=== PATIENT | male | born 1960 | race Caucasian/White ===

== ENCOUNTER → 2016-10-25 | Outpatient (CLI) | payer MEDICARE ==
[~2016-10-25] MED LIST: ATEN1TAB74 PO; CABE0.5T PO; GLUCTAB PO; LORA-392 PO; OXYC20TA26 PO; XANA1TAB6 PO
[2016-10-25 08:22] LABS: AUTOMATED NEUTROPHIL # 1.5 TH/MM3 (1.8-7.7); BASOPHIL % 0.8 % (0.0-2.0); EOSINOPHIL % 1.1 % (0.0-4.0); HEMATOCRIT 41.3 % (39.0-51.0); HEMO FLAGS DIFF FINAL; LYMPH % 45.2 % (9.0-44.0); LYMPHOCYTE # 1.6 TH/MM3 (1.0-4.8); MEAN CELL VOLUME 93.6 FL (80.0-100.0); MEAN CORPUSCULAR HEMOGLOBIN 31.9 PG (27.0-34.0); MEAN CORPUSCULAR HGB CONC 34.1 % (32.0-36.0); MONO % 9.4 % (0.0-8.0); NEUT % 43.5 % (16.0-70.0); PLATELET COUNT 150 TH/MM3 (150-450); RED BLOOD COUNT 4.41 MIL/MM3 (4.50-5.90); RED CELL DISTRIBUTION WIDTH 12.4 % (11.6-17.2); WHITE BLOOD COUNT 3.5 TH/MM3 (4.0-11.0)
[2016-10-25 08:56] LABS: ALKALINE PHOSPHATASE 70 U/L (45-117); ALT (GPT) 43 U/L (12-78); ANION GAP 7 MEQ/L (5-15); AST (GOT) 22 U/L (15-37); BICARBONATE 34.2 MEQ/L (21.0-32.0); BLOOD UREA NITROGEN 14 MG/DL (7-18); CHLORIDE 99 MEQ/L (98-107); GLOMERULAR FILTRATION RATE 93 ML/MIN (>89); GLUCOSE,FASTING 100 MG/DL (74-99); POTASSIUM 3.5 MEQ/L (3.5-5.1); SODIUM (NA) 140 MEQ/L (136-145); TOTAL BILIRUBIN ADULT 0.6 MG/DL (0.2-1.0)
[2016-10-25 08:57] LABS: HDL CHOLESTEROL 107.7 MG/DL (40.0-60.0)
[2016-10-25 09:02] LABS: FREE T4 1.38 NG/DL (0.76-1.46)
[2016-10-25 14:53] LABS: HEMOGLOBIN A1a 1.2 %; HEMOGLOBIN A1b 1.5 %; HEMOGLOBIN Ao 85.5 %; HEMOGLOBIN P3 3.4 %
== END ==
LOC: CLAB 07:43
DX: E22.9 Hyperfunction of pituitary gland, unspecified (principal); E29.1 Testicular hypofunction; E03.8 Other specified hypothyroidism; E11.8 Type 2 diabetes mellitus with unspecified complications; D35.2 Benign neoplasm of pituitary gland; E89.89 Other postprocedural endocrine and metabolic complications and disorders; M31.6 Other giant cell arteritis; R53.83 Other fatigue; G93.3 Postviral and related fatigue syndromes; R53.1 Weakness; R53.81 Other malaise; G25.0 Essential tremor
CPT/HCPCS: 36415; 80053; 80061; 83036; 84270; 84402; 84403; 84439; 84443; 85025

== ENCOUNTER → 2017-05-26 | Outpatient (CLI) | payer MEDICARE ==
[2017-05-26 09:17] LABS: ANION GAP 9 MEQ/L (5-15); BICARBONATE 31.5 MEQ/L (21.0-32.0); BLOOD UREA NITROGEN 12 MG/DL (7-18); CHLORIDE 97 MEQ/L (98-107); GLOMERULAR FILTRATION RATE 103 ML/MIN (>89); GLUCOSE,FASTING 102 MG/DL (74-99); POTASSIUM 3.7 MEQ/L (3.5-5.1); SODIUM (NA) 137 MEQ/L (136-145)
[2017-05-26 09:28] LABS: FREE T4 1.47 NG/DL (0.76-1.46)
[2017-05-26 16:39] LABS: HEMOGLOBIN A1a 1.2 %; HEMOGLOBIN A1b 1.4 %; HEMOGLOBIN Ao 85.3 %; HEMOGLOBIN LA1C 2.1 %; HEMOGLOBIN P3 3.6 %
== END ==
LOC: CLAB 08:18
DX: E03.8 Other specified hypothyroidism (principal); D35.2 Benign neoplasm of pituitary gland; R73.01 Impaired fasting glucose; E29.1 Testicular hypofunction
CPT/HCPCS: 36415; 80048; 83036; 84146; 84403; 84410; 84439; 84443

== ENCOUNTER → 2017-09-23 | Outpatient (CLI) | payer MEDICARE ==
[2017-09-23 08:29] LABS: AUTOMATED NEUTROPHIL # 2.5 TH/MM3 (1.8-7.7); BASOPHIL % 0.6 % (0.0-2.0); EOSINOPHIL % 0.9 % (0.0-4.0); HEMATOCRIT 43.7 % (39.0-51.0); HEMOGLOBIN 15.1 GM/DL (13.0-17.0); LYMPH % 29.2 % (9.0-44.0); LYMPHOCYTE # 1.2 TH/MM3 (1.0-4.8); MEAN CELL VOLUME 99.1 FL (80.0-100.0); MEAN CORPUSCULAR HEMOGLOBIN 34.2 PG (27.0-34.0); MEAN CORPUSCULAR HGB CONC 34.5 % (32.0-36.0); MEAN PLATELET VOLUME 7.5 FL (7.0-11.0); MONO % 8.7 % (0.0-8.0); MONOCYTE # 0.4 TH/MM3 (0-0.9); NEUT % 60.6 % (16.0-70.0); PLATELET COUNT 163 TH/MM3 (150-450); RED BLOOD COUNT 4.41 MIL/MM3 (4.50-5.90); RED CELL DISTRIBUTION WIDTH 13.7 % (11.6-17.2); WHITE BLOOD COUNT 4.1 TH/MM3 (4.0-11.0)
[2017-09-23 08:56] LABS: ALKALINE PHOSPHATASE 67 U/L (45-117); ALT (GPT) 57 U/L (12-78); TOTAL BILIRUBIN ADULT 0.7 MG/DL (0.2-1.0); TOTAL PROTEIN 7.9 GM/DL (6.4-8.2)
[2017-09-23 08:59] LABS: ALBUMIN 4.2 GM/DL (3.4-5.0); AST (GOT) 67 U/L (15-37); BICARBONATE 32.1 MEQ/L (21.0-32.0); BLOOD UREA NITROGEN 7 MG/DL (7-18); CALCIUM 9.2 MG/DL (8.5-10.1); CHLORIDE 101 MEQ/L (98-107); GLOMERULAR FILTRATION RATE 116 ML/MIN (>89); GLUCOSE,FASTING 105 MG/DL (74-99); SODIUM (NA) 142 MEQ/L (136-145)
[2017-09-25 07:02] LABS: GABAPENTIN (NEURONTIN) 1.2 mcg/mL (2.0-20.0); PHENOBARBITAL <2.4 mcg/mL (10.0 - 40.0); PRIMDONE 4.1 mcg/mL (5.0 - 12.0)
== END ==
LOC: CLAB 07:56
PROVIDERS: ATTEND Psychiatry & Neurology Neurology
DX: G25.0 Essential tremor (principal); Z51.81 Encounter for therapeutic drug level monitoring; G93.3 Postviral and related fatigue syndromes; R53.1 Weakness; R53.81 Other malaise; R53.83 Other fatigue
CPT/HCPCS: 36415; 80053; 80171; 80184; 80188; 85025

== ENCOUNTER 2018-06-01 07:30 | Inpatient (IN) ==
[2018-06-01] MEDS ORDERED: Chlorhexidine Gluconate 2% 1 Pack (2 Cloths) TOPICAL ONE (12:48)
[2018-06-01] MEDS ORDERED: Metoprolol Tartrate 25 MG Tablet PO ONE (12:48)
[2018-06-01] MEDS ORDERED: Sodium Chlor 0.9% Inj 500 ML IV.SIG SCH (13:00)
[2018-06-01] MEDS ORDERED: ceFAZolin 2 GM Premix Inj 2 GM/50 ML PIGGYBACK IV.SIG SCH (13:00)
[2018-06-01 13:10] LABS: Prothrombin Time 10.6 sec (9.8-11.6)
[2018-06-01] MEDS ORDERED: HYDROmorphone PF Inj 2 MG/ML Vial ONE (15:29)
[2018-06-01] MEDS ORDERED: Ketamine Inj 50 MG/5 ML Syringe IV.PUSH ONE (15:29)
[2018-06-01] MEDS ORDERED: fentaNYL Citrate Inj 100 MCG/2 ML Ampul ONE ×3 (15:36→18:01)
[2018-06-01] MEDS ORDERED: *morphine SULFATE 4 MG/ML PERIprocedure ONLY ONE ×2 (17:51→18:57)
[2018-06-01] MEDS ORDERED: Sodium Chlor 0.9% Inj 1,000 ML IV.SIG SCH (18:00)
[2018-06-01 18:07] LABS: Baso % (Auto) 0.3 % (0.0-2.0); Hematocrit 39.9 % (39.0-51.0); Hemoglobin 13.7 gm/dL (13.0-17.0); Lymph # (Auto) 0.6 th/mm3 (1.0-4.8); Lymph % (Auto) 6.3 % (9.0-44.0); Mean Corpuscular HGB Conc 34.3 % (32.0-36.0); Mean Corpuscular Hemoglobin 36.3 pg (27.0-34.0); Mean Corpuscular Volume 105.8 fL (80.0-100.0); Mean Platelet Volume 8.3 fL (7.0-11.0); Mono # (Auto) 0.1 th/mm3 (0.0-0.9); Mono % (Auto) 1.1 % (0.0-8.0); Neut # (Auto) 8.2 th/mm3 (1.8-7.7); Neut % (Auto) 92.3 % (16.0-70.0); Platelet Count 151 th/mm3 (150-450); Red Blood Count 3.77 mil/mm3 (4.50-5.90); Red Cell Distribution Width 13.9 % (11.6-17.2); White Blood Count 8.9 th/mm3 (4.0-11.0)
[2018-06-01] MEDS ORDERED: *Meperidine Inj 25 MG/ML Vial PERIprocedural Use ONLY ONE (18:09)
[2018-06-01 18:29] LABS: Calcium 7.7 mg/dL (8.5-10.1); Potassium 3.6 meq/L (3.5-5.1)
[2018-06-01] MEDS ORDERED: Gabapentin 400 MG Capsule PO ONE (18:45)
[2018-06-01] MEDS ORDERED: Dextrose 50% in Water 50 ML Vial IV.PUSH PRN (18:46)
[2018-06-01] MEDS: Pantoprazole Inj 40 MG Vial IV.PUSH SCH (18:52)
--- NOTE | 2018-06-01 20:14 | MP ---
cc: Felix Durand MD , DATE OF OPERATION: 06/01/2018 PREOPERATIVE DIAGNOSIS: Left solid renal mass, approximately 7 cm in size. POSTOPERATIVE DIAGNOSIS: Left solid renal mass, approximately 7 cm in size. PROCEDURE PERFORMED: Robotic-assisted laparoscopic left radical nephrectomy. SURGEON: Felix Durand MD ANESTHESIA: General. COMPLICATIONS: None. PREOPERATIVE ANTIBIOTICS: Ancef 2 grams IV. DRAINS: Newberry catheter. SPECIMENS: Left kidney for permanent. ESTIMATED BLOOD LOSS: 400 mL. FLUIDS: 2600 mL of crystalloid. DISPOSITION: Stable to recovery. INDICATIONS: The patient is a 57-year-old man who was found to have a large solid left renal mass incidentally on CT scan. Metastatic workup was negative. Treatment options were discussed with the patient. The patient elected to proceed with removal of his left kidney laparoscopically. After the risks, benefits and alternatives were explained to the patient, including the risks of renal failure, dialysis, chance of spread and recurrence, he elected to proceed. Informed consent was obtained. DETAILS OF PROCEDURE: The patient was properly identified, brought back to the operating room and laid supine on the operating table. Appropriate timeout was performed. Under the direction of anesthesiology, the patient was intubated and induced under general anesthetic. Preoperative antibiotics in the form of Ancef 2 grams IV were given within 1 hour of the start of the procedure. The patient was then placed in the right lateral decubitus position with the left side up and all pressure points were padded after a Newberry catheter was placed. The patient was then prepped and draped in normal sterile surgical fashion. A stab incision was made just lateral and superior to the umbilicus. A Veress needle was then used to gain access to abdominal cavity and achieve pneumoperitoneum. The incision was extended approximately 2 cm under direct visualization. I then passed a 12 mm camera port into the abdominal cavity. There was some anterior abdominal adhesions along the midline and towards the spleen. At this point, I put a 12 mm assistant project manager port in the midline inferior to the umbilicus. An 8 mm robotic assistant project manager port was then placed in the left lower quadrant, triangulated off of the camera port. Using laparoscopic scissors, I then took the adhesions down without difficulty. This opened up a window to place my left upper quadrant 8 mm robotic port, which was placed under direct visualization. At this point, the robot was then brought into position. The remaining anterior abdominal adhesions were then taken down with blunt dissection and electrocautery. At this point, I then took down the white line of Toldt and reflected the colon medially to expose the retroperitoneum. Through careful dissection, I was able to find the gonadal vein and ureter. I then retracted the vein and ureter anteriorly towards the abdominal wall and followed the psoas muscle and the gonadal vein up to the attachment of the renal vein. The gonadal vein was then ligated with the right vessel sealer. At this point, a single artery and vein were carefully identified. Each were taken separately beginning with the artery with the endovascular TERRI stapler. Once the renal hilum was taken, the rest of the kidney was carefully dissected and freed with a combination of electrocautery and blunt dissection. The superior and lateral attachments were then completely dissected free from the kidney and the kidney was completely mobilized. The remaining portion of the ureter which was still attached inferiorly was then divided with a the endovascular TERRI stapler. The kidney was then placed in an EndoCatch bag for later removal. The renal fossa and hilum were carefully inspected and there was some mild oozing going on around this area, which was then controlled with electrocautery. Then, 5 mL of Evicel was placed in this area for hemostatic purposes. The kidney was then extracted through the left lower quadrant incision. During extraction, the epigastrics were divided and these were controlled and Hem-o-loks. The incision was then closed with 2 layers with a running 3-0 Vicryl for the peritoneum and a 1 PDS for the fascial incisions. A second look was then taken once the fascial incision was closed. The under portion of the incision was free of bowel. There was no evidence of any pooling of blood in the renal fossa. The remaining structures remained intact and the ports were removed under direct visualization. The incisions were closed with 4-0 Monocryl. This concluded the procedure. The patient was extubated and sent to recovery in stable condition. He will be transferred to the floor for routine postoperative care. Sponge, instrument and needle counts were correct at the end of the case. Felix Durand MD EMKen/pancho , 05:33 PM , 05:45 PM
[2018-06-01] MEDS: Docusate Sodium 100 MG Capsule PO SCH (21:42)
[2018-06-01] MEDS: ceFAZolin 1 GM Premix Inj 1 GM/50 ML FROZ.PIGGY IV.SIG SCH (21:44)
[2018-06-01] MEDS: Insulin NovoLOG Aspart Correctional Sugar Inj SQ SCH (22:22)
[2018-06-01] MEDS: Primidone 50 MG Tablet PO SCH (23:56)
[2018-06-01] MEDS: Morphine Inj 4 MG/ML Vial IV.PUSH PRN (23:58)
[2018-06-02] MEDS: ceFAZolin 1 GM Premix Inj 1 GM/50 ML FROZ.PIGGY IV.SIG SCH ×2 (05:37→13:02)
[2018-06-02] MEDS: Morphine Inj 4 MG/ML Vial IV.PUSH PRN ×5 (05:37→22:18)
[2018-06-02] MEDS: Levothyroxine 75 MCG Tablet PO SCH (05:37)
[2018-06-02 07:15] LABS: Hematocrit 36.7 % (39.0-51.0); Hemoglobin 12.7 gm/dL (13.0-17.0); Mean Corpuscular HGB Conc 34.8 % (32.0-36.0); Mean Corpuscular Hemoglobin 37.1 pg (27.0-34.0); Mean Corpuscular Volume 106.8 fL (80.0-100.0); Mean Platelet Volume 8.5 fL (7.0-11.0); Platelet Count 122 th/mm3 (150-450); Red Blood Count 3.43 mil/mm3 (4.50-5.90); Red Cell Distribution Width 13.7 % (11.6-17.2); White Blood Count 6.9 th/mm3 (4.0-11.0)
[2018-06-02 07:41] LABS: Carbon Dioxide 27.1 meq/L (21.0-32.0); Potassium 4.8 meq/L (3.5-5.1)
[2018-06-02] MEDS: Primidone 50 MG Tablet PO SCH ×2 (09:00→21:02)
[2018-06-02] MEDS: Docusate Sodium 100 MG Capsule PO SCH ×2 (09:00→21:01)
[2018-06-02] MEDS: Insulin NovoLOG Aspart Correctional Sugar Inj SQ SCH ×3 (09:00→22:18)
[2018-06-02] MEDS: amLODIPine 5 MG Tablet PO SCH (09:00)
[2018-06-02] MEDS: Gabapentin 400 MG Capsule PO SCH (09:00)
[2018-06-02] MEDS: Duloxetine 60 MG DR Capsule PO SCH (09:00)
[2018-06-02] MEDS: traZODone 100 MG Tablet PO SCH (09:00)
--- NOTE | 2018-06-02 14:50 | P.PNURO ---
Subjective Patient symptoms today: Pt was seen at the bedside. He is s/p Robotic-assisted laparoscopic left radical nephrectomy yesterday. Has mild to mod post op pain, managed well. No f/c/n/v. Labs are stable. Tolerates clear diet well. Newberry removed he voided ok but states its a slow stream. No BM but had + flatus Objective Vital Signs: Vital Signs 06/01/18 19:02 06/01/18 21:39 06/02/18 00:00 Temperature 98.1 F 98.4 F Pulse Rate 76 80 Respiratory Rate 12 18 Blood Pressure 118/68 135/84 Pulse Oximetry 92 L 95 06/02/18 04:00 06/02/18 08:00 06/02/18 09:00 Temperature 98.5 F 98.6 F Pulse Rate 75 67 Respiratory Rate 18 16 5 L Blood Pressure 126/70 145/93 H Pulse Oximetry 95 98 06/02/18 12:00 Temperature 98.6 F Pulse Rate 64 Respiratory Rate 18 Blood Pressure 131/83 Pulse Oximetry 94 L Intake & Output 06/01/18 06/02/18 06/02/18 18:59 06:59 18:59 Intake Total 2600 / 2600 1100 / 1100 Output Total 650 / 650 350 / 350 150 / 150 Balance 1950 / 1950 750 / 750 -150 / -150 Weight 85 kg Intake: IV 1100 / 1100 NS Inj 1,000 ML @ 125 mls/hr IV 1000 / 1000 .SIG .Q10H ASHLEY Rx#:[id number] Ancef 1 GM Premix Inj 1 gm In 100 / 100 50 ml @ 100 mls/hr IV.SIG Q8H ASHLEY Rx#:[id number] Anesthesia Amount 2600 / 2600 Output: Urine 350 / 350 150 / 150 Estimated Blood Loss 350 / 350 Urine Amount (Catheter) 300 / 300 Indwelling Urethral Catheter 300 / 300 Other: # Voids 1 Weight On Admission 85 kg Result Diagrams: 06/02/18 06:13 06/02/18 06:13 Other Results: NAD RRR\Clear lungs Abd semisoft, slightly tender and distended as expected post/op Incisions c/d/i Medications and IVs: Active Medications Generic Name Dose Route Start Last Admin Trade Name Freq PRN Reason Stop Dose Admin Amlodipine Besylate 5 mg 06/02/18 09:00 06/02/18 09:00 Norvasc PO 5 mg DAILY ASHLEY Administration Buspirone HCl 10 mg 06/01/18 19:30 06/02/18 13:04 Buspar PO 10 mg TID ASHLEY Administration Clonidine HCl 0.1 mg 06/01/18 21:00 06/02/18 09:00 Catapres PO 0.1 mg BID ASHLEY Administration Dextrose 50 ml 06/01/18 18:46 D50w Vial IV.PUSH UNSCH PRN PER HYPOGLYCEMIA PROTOCOL Docusate Sodium 100 mg 06/01/18 21:00 06/02/18 09:00 Colace PO 100 mg BID ASHLEY Administration Duloxetine HCl 60 mg 06/02/18 09:00 06/02/18 09:00 Cymbalta PO 60 mg DAILY [facility] Administration Gabapentin 400 mg 06/02/18 09:00 06/02/18 09:00 Neurontin PO 400 mg DAILY ASHLEY Administration Glucagon 1 mg 06/01/18 18:46 Glucagon Inj OTHER PRN PRN for Hypoglycemia Protocol Sodium Chloride 1,000 mls @ 125 mls/hr 06/01/18 18:00 06/02/18 03:42 Ns Inj IV.SIG Infused .Q10H ASHLEY Infusion Insulin Aspart 0 unit 06/01/18 21:00 06/02/18 13:21 Novolog Insulin Correctional Sugar Inj SQ Not Given ACHS [facility] Protocol Levothyroxine Sodium 75 mcg 06/02/18 06:00 06/02/18 05:37 Synthroid PO 75 mcg DAILY@0600 ASHLEY Administration Metformin HCl 500 mg 06/01/18 21:00 06/01/18 21:42 Glucophage PO 500 mg HS ASHLEY Administration Miscellaneous Information 1 each 06/01/18 18:40 Misc Nursing Information OTHER 06/02/18 18:40 UNSCH PRN SEE LABEL COMMENTS Morphine Sulfate 4 mg 06/01/18 17:23 06/02/18 13:04 Morphine Inj IV.PUSH 4 mg Q4H PRN Administration BREAKTHROUGH PAIN Ondansetron HCl 4 mg 06/01/18 17:23 Zofran Inj IV.PUSH Q6H PRN NAUSEA OR VOMITING Oxycodone/Acetaminophen 2 tab 06/01/18 17:22 06/02/18 12:06 Percocet 5/325 Mg PO 2 tab Q4H PRN Administration PAIN SCALE 6 TO 10 Oxycodone/Acetaminophen 1 tab 06/01/18 17:25 Percocet 5/325 Mg PO Q4H PRN PAIN SCALE 3 TO 5 Pantoprazole Sodium 40 mg 06/01/18 18:00 06/01/18 18:52 Protonix Inj IV.PUSH 40 mg Q24H ASHLEY Administration Potassium Chloride 10 meq 06/01/18 21:00 06/02/18 09:00 Klor-Con 10 PO 10 meq BID ASHLEY Administration Pravastatin Sodium 20 mg 06/02/18 09:00 06/02/18 09:00 Pravachol PO 20 mg DAILY [facility] Administration Primidone 50 mg 06/01/18 21:00 06/02/18 09:00 Mysoline PO 50 mg Q12H ASHLEY Administration Sodium Chloride 2 ml 06/01/18 12:48 Ns Flush IV.FLUSH PRN PRN FLUSH AFTER USING IV ACCESS Sodium Chloride 2 ml 06/01/18 21:00 06/02/18 09:00 Ns Flush IV.FLUSH 2 ml BID ASHLEY Administration Trazodone HCl 100 mg 06/02/18 09:00 06/02/18 09:00 Desyrel PO 100 mg DAILY A[facility] Administration Assessment and Plan - Plan 57y. o M POD #1 s/p Robotic-assisted laparoscopic left radical nephrectomy. - Continue current management - Pain control prn - Advance diet tomorrow - OOB and ambulate - Labs at AM - Bladder scan to r/o retention - DVT prophylaxis/ Use IS If ok possibly d/c home tomorrow Discussed Condition With: Dr Kizzy TRIANA attending
--- NOTE | 2018-06-02 16:02 | ECG ---
Date Performed: 06/01/2018 Time Performed: 12:38:13 PTAGE: 57 years EKG: Sinus rhythm NORMAL ECG PREVIOUS TRACING : 07/13/2009 19.47 Since the previous tracing, no significant change noted DOCTOR: Tyshawn Barajas Interpretating Date/Time 06/02/2018 16:00:31
[2018-06-02] MEDS: Pantoprazole Inj 40 MG Vial IV.PUSH SCH (17:14)
[2018-06-03] MEDS: Morphine Inj 4 MG/ML Vial IV.PUSH PRN ×3 (02:30→11:21)
[2018-06-03] MEDS: Levothyroxine 75 MCG Tablet PO SCH (05:13)
--- NOTE | 2018-06-03 07:39 | ECG ---
Date Performed: 06/03/2018 Time Performed: 06:42:02 PTAGE: 57 years EKG: Sinus rhythm WITH OCCASIONAL SUPRAVENTRICULAR PREMATURE COMPLEXES NONSPECIFIC T-WAVE ABNORMALITY BORDERLINE ECG PREVIOUS TRACING : 06/01/2018 12.38 DOCTOR: Chacho Baxter Interpretating Date/Time 06/03/2018 07:39:24
[2018-06-03 07:54] LABS: Hematocrit 38.9 % (39.0-51.0); Hemoglobin 13.4 gm/dL (13.0-17.0); Mean Corpuscular HGB Conc 34.4 % (32.0-36.0); Mean Corpuscular Hemoglobin 37.2 pg (27.0-34.0); Mean Corpuscular Volume 108.1 fL (80.0-100.0); Mean Platelet Volume 8.2 fL (7.0-11.0); Platelet Count 122 th/mm3 (150-450); Red Cell Distribution Width 14.1 % (11.6-17.2); White Blood Count 5.5 th/mm3 (4.0-11.0)
[2018-06-03 08:29] LABS: Calcium 8.3 mg/dL (8.5-10.1); Potassium 3.6 meq/L (3.5-5.1)
[2018-06-03] MEDS: Gabapentin 400 MG Capsule PO SCH (09:11)
[2018-06-03] MEDS: Primidone 50 MG Tablet PO SCH (09:11)
[2018-06-03] MEDS: traZODone 100 MG Tablet PO SCH (09:11)
[2018-06-03] MEDS: Docusate Sodium 100 MG Capsule PO SCH (09:12)
[2018-06-03] MEDS: amLODIPine 5 MG Tablet PO SCH (09:12)
[2018-06-03] MEDS: Duloxetine 60 MG DR Capsule PO SCH (09:12)
[2018-06-03] MEDS: Insulin NovoLOG Aspart Correctional Sugar Inj SQ SCH ×2 (09:14→12:27)
--- NOTE | 2018-06-03 10:55 | P.PNURO ---
Subjective Patient symptoms today: feels good. Abdominal pain controlled. Passing flatus. Tolerating regular diet. Voiding on own. Ambulating. Denies CP/SOB/N/V/F. Objective Vital Signs: Vital Signs 06/02/18 12:00 06/02/18 13:10 06/02/18 16:00 Temperature 98.6 F 98.5 F Pulse Rate 64 62 Respiratory Rate 18 6 L 18 Blood Pressure 131/83 138/89 Pulse Oximetry 94 L 99 06/02/18 20:00 06/03/18 00:00 06/03/18 04:00 Temperature 98.2 F 97.8 F 97.6 F Pulse Rate 66 61 57 L Respiratory Rate 18 18 18 Blood Pressure 137/93 H 130/92 H 158/91 H Pulse Oximetry 94 L 96 98 06/03/18 08:00 Temperature 98.6 F Pulse Rate 82 Respiratory Rate 16 Blood Pressure 166/99 H Pulse Oximetry 97 Intake & Output 06/02/18 06/03/18 06/03/18 18:59 06:59 18:59 Intake Total 50 / 50 Output Total 150 / 150 1100 / 1100 Balance -100 / -100 -1100 / -1100 Weight 87.7 kg Intake: IV 50 / 50 Output: Urine 150 / 150 1100 / 1100 Other: # Voids 1 # Bowel Movements 1 Result Diagrams: 06/03/18 07:22 06/03/18 07:22 Medications and IVs: Active Medications Generic Name Dose Route Start Last Admin Trade Name Freq PRN Reason Stop Dose Admin Amlodipine Besylate 5 mg 06/02/18 09:00 06/03/18 09:12 Norvasc PO 5 mg DAILY [facility] Administration Buspirone HCl 10 mg 06/01/18 19:30 06/03/18 09:12 Buspar PO 10 mg TID ASHLEY Administration Clonidine HCl 0.1 mg 06/01/18 21:00 06/03/18 09:11 Catapres PO 0.1 mg BID ASHLEY Administration Dextrose 50 ml 06/01/18 18:46 D50w Vial IV.PUSH UNSCH PRN PER HYPOGLYCEMIA PROTOCOL Docusate Sodium 100 mg 06/01/18 21:00 06/03/18 09:12 Colace PO 100 mg BID ASHLEY Administration Duloxetine HCl 60 mg 06/02/18 09:00 06/03/18 09:12 Cymbalta PO 60 mg DAILY [facility] Administration Gabapentin 400 mg 06/02/18 09:00 06/03/18 09:11 Neurontin PO 400 mg DAILY [facility] Administration Glucagon 1 mg 06/01/18 18:46 Glucagon Inj OTHER PRN PRN for Hypoglycemia Protocol Sodium Chloride 1,000 mls @ 125 mls/hr 06/01/18 18:00 06/02/18 03:42 Ns Inj IV.SIG Infused .Q10H ASHLEY Infusion Insulin Aspart 0 unit 06/01/18 21:00 06/03/18 09:14 Novolog Insulin Correctional Sugar Inj SQ Not Given ACHS [facility] Protocol Levothyroxine Sodium 75 mcg 06/02/18 06:00 06/03/18 05:13 Synthroid PO 75 mcg DAILY@0600 [facility] Administration Metformin HCl 500 mg 06/01/18 21:00 06/02/18 21:02 Glucophage PO 500 mg HS [facility]LEY Administration Morphine Sulfate 4 mg 06/01/18 17:23 06/03/18 07:31 Morphine Inj IV.PUSH 4 mg Q4H PRN Administration BREAKTHROUGH PAIN Ondansetron HCl 4 mg 06/01/18 17:23 Zofran Inj IV.PUSH Q6H PRN NAUSEA OR VOMITING Oxycodone/Acetaminophen 2 tab 06/01/18 17:22 06/03/18 09:11 Percocet 5/325 Mg PO 2 tab Q4H PRN Administration PAIN SCALE 6 TO 10 Oxycodone/Acetaminophen 1 tab 06/01/18 17:25 Percocet 5/325 Mg PO Q4H PRN PAIN SCALE 3 TO 5 Pantoprazole Sodium 40 mg 06/01/18 18:00 06/02/18 17:14 Protonix Inj IV.PUSH 40 mg Q24H ASHLEY Administration Potassium Chloride 10 meq 06/01/18 21:00 06/03/18 09:12 Klor-Con 10 PO 10 meq BID [facility] Administration Pravastatin Sodium 20 mg 06/02/18 09:00 06/03/18 09:11 Pravachol PO 20 mg DAILY [facility] Administration Primidone 50 mg 06/01/18 21:00 06/03/18 09:11 Mysoline PO 50 mg Q12H ASHLEY Administration Sodium Chloride 2 ml 06/01/18 12:48 Ns Flush IV.FLUSH PRN PRN FLUSH AFTER USING IV ACCESS Sodium Chloride 2 ml 06/01/18 21:00 06/03/18 09:14 Ns Flush IV.FLUSH 2 ml BID ASHLEY Administration Tamsulosin HCl 0.4 mg 06/02/18 19:00 06/03/18 09:11 Flomax PO 0.4 mg DAILY [facility] Administration Trazodone HCl 100 mg 06/02/18 09:00 06/03/18 09:11 Desyrel PO 100 mg DAILY ASHLEY Administration Objective Remarks: NAD. A/O x 3 CTAB RRR abd soft, NT, ND. inc c/d/i Ext NT. No edema Assessment and Plan - Plan 57y. o M POD #2 s/p Robotic-assisted laparoscopic left radical nephrectomy. - doing well. - hgb stable. -D/c home this afternoon. F/U in 1 week.
--- NOTE | 2018-06-03 11:03 | P.DS ---
Date of admission: 06/01/18 11:33 Primary care physician: Hemant Mayes MD Brief History from admission: 57 yo male with large left renal mass. He was admitted following a Robotic Radical Nephrectomy. His hospital course was uncomplicated. Pain was well controlled and voiding on his own on POD#1. Labs, vitals were stable. He was discharged home on POD# 2 after tolerating a regular diet and ambulating on his own. DS: Diagnosis - Discharge Diagnosis (1) Kidney malignancy Status: Acute DS: Medications - Discharge Medications Prescriptions: oxycodone-acetaminophen 2 tab PO Q4H PRN #20 tab PRN Reason: Acute Pain DS: Summary Hospital Course: 57 yo male with large left renal mass. He was admitted following a Robotic Radical Nephrectomy. His hospital course was uncomplicated. Pain was well controlled and voiding on his own on POD#1. Labs, vitals were stable. He was discharged home on POD# 2 after tolerating a regular diet and ambulating on his own. - Time Spent with Patient Total time spent providing and/or coordinating discharge services: Greater than 30 minutes - Quality: VTE Deep Vein Thrombosis/Pulmonary Embolism Present on Admission: No Exam Vital signs: Vital Signs 06/02/18 12:00 06/02/18 13:10 06/02/18 16:00 Temperature 98.6 F 98.5 F Pulse Rate 64 62 Respiratory Rate 18 6 L 18 Blood Pressure 131/83 138/89 Pulse Oximetry 94 L 99 06/02/18 20:00 06/03/18 00:00 06/03/18 04:00 Temperature 98.2 F 97.8 F 97.6 F Pulse Rate 66 61 57 L Respiratory Rate 18 18 18 Blood Pressure 137/93 H 130/92 H 158/91 H Pulse Oximetry 94 L 96 98 06/03/18 08:00 Temperature 98.6 F Pulse Rate 82 Respiratory Rate 16 Blood Pressure 166/99 H Pulse Oximetry 97 Intake & Output 06/02/18 06/03/18 06/03/18 18:59 06:59 18:59 Intake Total 50 / 50 Output Total 150 / 150 1100 / 1100 Balance -100 / -100 -1100 / -1100 Weight 87.7 kg Intake: IV 50 / 50 Output: Urine 150 / 150 1100 / 1100 Other: # Voids 1 # Bowel Movements 1 Results Procedures completed during hospitalization: Robotic Left Radical Nephrectomy Pending studies at discharge: Pending at discharge 06/01/18 07:59 Surgical [PTH] Routine Labs on day of discharge: Labs from last 24 hours 06/03/18 06/03/18 06/03/18 07:37 07:22 07:22 WBC 5.5 RBC 3.60 L Hgb 13.4 Hct 38.9 L MCV 108.1 H MCH 37.2 H MCHC 34.4 RDW 14.1 Plt Count 122 L MPV 8.2 Sodium 140 Potassium 3.6 D Chloride 105 Carbon Dioxide 30.0 Anion Gap 5 BUN 9 Creatinine 1.08 Estimated GFR 70 L POC Glucose 83 Random Glucose 88 Calcium 8.3 L 06/02/18 06/02/18 06/02/18 21:05 16:38 12:11 WBC RBC Hgb Hct MCV MCH MCHC RDW Plt Count MPV Sodium Potassium Chloride Carbon Dioxide Anion Gap BUN Creatinine Estimated GFR POC Glucose 122 H 114 H 122 H Random Glucose Calcium Discharge Plan - Discharge Disposition Patient Disposition: 01 Discharge Home - Discharge Condition Condition: Good - Discharge Order Discharge Orders: Discharge Order (Routine); Ordered 06/03/18 Ordered By: Felix Durand - Physicians Team Primary Care Provider: Hemant Mayes Attending Provider: Felix Durand - Rxs /Orders / Referrals /Forms Prescriptions: New docusate sodium [DOK] 100 mg Capsule 100 mg PO BID PRN (Reason: Constipation) Qty: 30 RF: 0 oxycodone-acetaminophen 5-325 mg Tablet 2 tab PO Q4H PRN (Reason: Acute Pain) Qty: 20 RF: 0 Continue amlodipine 5 mg Tablet 5 mg PO DAILY buspirone 10 mg Tablet 1 cap PO BID clonidine HCl 0.1 mg Tablet 0.1 mg PO BID duloxetine 60 mg Capsule,Delayed Release(Dr/Ec) 60 mg PO DAILY gabapentin 400 mg Capsule 400 mg PO DAILY levothyroxine 75 mcg Capsule 75 mcg PO DAILY lovastatin 20 mg Tablet 20 mg PO DAILY metformin 500 mg Tablet 500 mg PO HS potassium chloride 10 mEq Tablet Extended Release 10 meq PO BID primidone 50 mg Tablet 50 mg PO Q12H trazodone 100 mg Tablet 100 mg PO DAILY Referrals: Hemant Mayes MD [Primary Care Provider] - See Instructions - Discharge Instructions Patient Printed Instructions: Laparoscopic Radical Nephrectomy (DC)
== END 2018-06-03 13:50 | disposition home or self-care (01) ==
LOC: HSDI 11:33 → N05 20:01
PROVIDERS: ADMIT Urology; ATTEND Urology
DX: C64.2 Malignant neoplasm of left kidney, except renal pelvis